=== PATIENT | male | born 1960 | race American Indian/Alaskan Native ===

== ENCOUNTER 2019-12-23 07:48 | Emergency (ER) | payer MEDICARE ==
[2019-12-23 08:01] VITALS: BP 159/84
[2019-12-23] MEDS ORDERED: IBUPROFEN 800 MG TAB PO ONE (08:51)
[2019-12-23] MEDS ORDERED: fentaNYL 100 MCG/2 ML INJ IM ONE (08:51)
[2019-12-23] MEDS ORDERED: ONDANSETRON 4 MG/2 ML INJ IM ONE (08:51)
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
== END 2019-12-23 09:43 | disposition home or self-care (01) ==
LOC: ED 07:48
DX: M54.30 Sciatica, unspecified side (principal); I10 Essential (primary) hypertension; Z98.890 Other specified postprocedural states; Z87.891 Personal history of nicotine dependence; Z79.1 Long term (current) use of non-steroidal anti-inflammatories (NSAID); Z79.899 Other long term (current) drug therapy
CPT/HCPCS: 96372; 99282; J2405; J3010

== ENCOUNTER 2020-07-10 12:38 | Emergency (ER) | payer MEDICARE ==
[2020-07-10 12:50] VITALS: BP 131/95
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
== END 2020-07-10 13:45 | disposition home or self-care (01) ==
LOC: ED 12:38
DX: J01.00 Acute maxillary sinusitis, unspecified (principal); I10 Essential (primary) hypertension; Z79.899 Other long term (current) drug therapy; Z98.890 Other specified postprocedural states
CPT/HCPCS: 99282